=== PATIENT | female | born 1960 | race Caucasian/White ===

== ENCOUNTER → 2017-07-02 | Outpatient (CLI) | payer MEDICAID ==
--- NOTE | 2017-07-05 14:01 | CPEEG ---
[f rep st] ELECTROENCEPHALOGRAM DATE OF STUDY: 07/02/2017 DATE OF INTERPRETATION: 07/05/2017. DATE OF STUDY: 07/02/2017. INTERPRETATION: This 4 hour video-EEG recording is abnormal due to the presence of frequent potentially epileptogenic abnormalities over the left temporal head region. 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 During the video EEG monitoring session, the patient did not have any clinical events or electrographic seizure discharges. REPORT: This 4-hour video EEG contains 10 Hz alpha activity to the posterior head regions. There was no abnormal activation during wakefulness, photic stimulation or hyperventilation. The patient became drowsy and fell asleep during the study. During drowsiness and sleep, there was activation of frequent left temporal sharp waves. These left temporal sharp waves occurred in trains, at times, during sustained non-REM sleep. The patient did not have any clinical events or electrographic seizure discharges during the video EEG monitoring session. /[id number]/MODL MTDD
== END ==
LOC: FCPNEURO 08:45
PROVIDERS: ATTEND Psychiatry & Neurology Neurology
DX: R94.01 Abnormal electroencephalogram [EEG] (principal); R40.4 Transient alteration of awareness